=== PATIENT | male | born 2000 | race Two or more races ===

== ENCOUNTER 2025-05-18 21:24 | Emergency (ER) | payer OTHER, SELFPAY ==
[2025-05-18 21:28] VITALS: BMI 38.3
[2025-05-18 21:37] VITALS: BP 159/93; PULSE 91; RESP 17; TEMP 37.1; O2SAT 96
--- NOTE | 2025-05-18 21:42 | XR_ITS ---
Examination: CT lumbar spine, without contrast. 2-D sagittal reconstructions. 2-D coronal reconstructions. 3-D reconstructions. Date and time of exam May 18, 2025, 10:28 PM CTDI: vol (mGy):35.6 DLP: (mGycm):1491 Technique: Multiple 1.25 mm axial sections of the lumbar spine have been obtained. 2-D sagittal and coronal reconstructions have been obtained. 3-D reconstructions have been obtained. Low dose protocols were performed. One or more of the following dose reduction techniques were used; automated exposure control, adjustment of the mA and/or KV according to patient size, use of iterative reconstruction technique. Findings: Adequate alignment lumbar vertebral bodies Moderate disc narrowing L5-S1 No lumbar fracture No spondylolisthesis L5-S1 9 mm central left paracentral disc bulge extending to the left foramen with severe left L5 ganglionic impression L4-L5: 8 mm central lumbar disc bulge severely impinging upon the thecal sac L3-L4 6 mm central lumbar disc bulge L2-L3 no disc protrusion L1-L2 no disc protrusion IMPRESSION: Severe acquired spinal stenosis at the L5-S1 L4-L5 levels Recommend MRI lumbar spine without contrast follow-up
--- NOTE | 2025-05-18 21:42 | PD.EDRME ---
Rapid Medical Screening Exam RME Arrival date/time: 05/18/25 21:24 This is a case of 24-year-old male with no medical history came in in the emergency room due to lower back pain radiating to sacral area for 1 week worsening of the symptoms now with numbness weakness on both lower extremities thus patient decided to sought consult here in the emergency room Chief Complaint: General Adult/Misc Complain Time Seen by Provider: 05/18/25 21:33 Vital signs: Vital Signs Temperature 98.7 F 05/18/25 21:37 Pulse Rate 91 05/18/25 21:37 Respiratory Rate 17 05/18/25 21:37 Blood Pressure 159/93 H 05/18/25 21:37 Pulse Oximetry (%) 96 05/18/25 21:37 Oxygen Delivery Method Room Air 05/18/25 21:37
[2025-05-18 22:18] LABS: Basophils # (Auto) 0.0 Thou/mm3 (0.0-0.2); Basophils % (Auto) 0 % (0-2.5); Eosinophils # (Auto) 0.0 Thou/mm3 (0.0-0.5); Eosinophils % (Auto) 0 % (0-10); Hematocrit 39.7 % (41.0-53.0); Hemoglobin 12.6 g/dL (13.5-16.0); Immature Granulocytes Auto 0.05 Thou/mm3 (0.00-0.00); Lymphocytes # (Auto) 1.8 Thou/mm3 (1.0-4.8); Lymphocytes % (Auto) 17 % (10-50); Mean Corpuscular HGB Conc 31.7 g/dl (31.0-37.0); Mean Corpuscular Hemoglobin 27.7 pg (25.0-35.0); Mean Corpuscular Volume 87 fL (80-100); Monocytes # (Auto) 0.7 Thou/mm3 (0.0-0.8); Monocytes % (Auto) 6 % (0-12); Neutrophils # (Auto) 8.3 Thou/mm3 (1.8-7.7); Neutrophils % (Auto) 76 % (37-80); Nucleated Red Blood Cell # 0.00 Thou/mm3 (0.00-0.00); Nucleated Red Blood Cell % 0 /100 WBC (0); Platelet Count 203 Thou/mm3 (140-440); RDW Standard Deviation 47.2 fL (35.1-43.9); Red Blood Count 4.55 Miln/mm3 (4.50-5.90); White Blood Count 10.9 Thou/mm3 (3.8-10.6)
[2025-05-18 22:38] LABS: Alanine Aminotransferase 16 U/L (10-49); Albumin, Serum 4.9 gm/dL (3.5-5.0); Albumin/Globulin Ratio 1.8 (1.2-2.2); Alkaline Phosphatase 84 U/L (46-116); Anion Gap 9 (7-16); Aspartate Amino Transferase 19 U/L (0-34); BUN/Creatinine Ratio 11 Ratio (12-20); Bilirubin,Total 0.5 mg/dL (0.3-1.2); Blood Urea Nitrogen 9 mg/dL (9-23); Calcium 9.9 mg/dL (8.3-10.6); Calcium (Corrected) 9.9 mg/dL (8.5-10.1); Carbon Dioxide 26.9 mMol/L (20.0-31.0); Chloride 105 mMol/L (98-107); Creatinine (Component) 0.8 mg/dL (0.6-1.3); Estimated Creatinine Clearance 193.1 mL/min (>60); Globulin 2.8 gm/dL (2.3-3.5); Glucose 117 mg/dL (74-106); Osmolality,Calculated 280 (275-295); Potassium 3.8 mMol/L (3.4-5.1); Sodium 141 mMol/L (136-145); Total Protein 7.7 gm/dL (5.7-8.2); eGFR > 60 See Note
[2025-05-18 23:17] VITALS: BP 163/94; PULSE 86; RESP 19; TEMP 37.6; O2SAT 98
--- NOTE | 2025-05-19 01:05 | PD.EDNEURO ---
Neuro Symptoms Deficit-RME/HPI General Chief Complaint: General Adult/Misc Complain Stated Complaint: BILATERAL LEG NUMBNESS TODAY Time Seen by Provider: 05/18/25 21:33 Arrival date/time: 05/18/25 21:24 RME / HPI RME / HPI Narrative: 05/18/25 21:24 This is a case of 24-year-old male with no medical history came in in the emergency room due to lower back pain radiating to sacral area for 1 week worsening of the symptoms now with numbness weakness on both lower extremities thus patient decided to sought consult here in the emergency room DR. FORBES MAIN ED EVALUATION: 24 y/o male with no significant medical history presents to ED c/o BL lower back pain x 1 year and BL weakness and numbness radiating from the BL glutes and posteriorly down to his feet x 1 day. He is unable to stand and support his own weight. Patient was able to ambulate and stand with no evident deficits 2 days ago. Last bowel movement was Tuesday morning and last urinary output was Tuesday morning. Patient was seen at [place] [facility] just [employer] and was discharge with Hypothyroidism. No CT or MRI was performed only bloodwork. No other concerns or complains expressed at this time. Related Data Allergies Allergy/AdvReac Type Severity Reaction Status Date / Time No Known Allergies Allergy Verified 05/18/25 21:27 Review of Systems Review of Systems Systems Reviewed: All systems reviewed, normal except as documented Past Medical History Past Medical History ENDOCRINE: Positive Endocrine Disorders and Hypothyroidism ED Exam Narrative Physical exam: Generally patient is alert and in no obvious distress heart is regular rate and rhythm lungs clear to auscultation equal bilaterally abdomen soft bowel sounds present nondistended nontender and obese neurologic exam showed the patient have symmetric bilateral lower extremity weakness with the muscle strength of 4/5. He does have saddle anesthesia. He does have low back tenderness to palpation. Patient's bilateral lower extremity weakness can support the patient's own weight for only a brief period of time. Course Quality Measures none Orders Category Date Time Status CT lumbar spine wo con Stat Exams 05/18/25 21:42 Completed CBC Stat Lab 05/18/25 22:10 Completed CMP [Comprehensive Metabolic Panel] Stat Lab 05/18/25 22:10 Completed HYDROmorphone INJ [Dilaudid Inj] Med 05/19/25 01:06 Discontinued 1 mg IVP X1 ONE Vital Signs Vital signs: Vital Signs Temperature 98.7 F 05/18/25 21:37 Pulse Rate 91 05/18/25 21:37 Respiratory Rate 17 05/18/25 21:37 Blood Pressure 159/93 H 05/18/25 21:37 Pulse Oximetry (%) 96 05/18/25 21:37 Oxygen Delivery Method Room Air 05/18/25 21:37 Neuro Symptoms / Deficit MDM Narrative MDM Narrative:: Scribe Attestation: I, Navya Quinones, am scribing for and in the presence of Dr. Forbes. Provider Notation: Although this document has been carefully reviewed, there may still be some phonetic and other typographical errors.? These errors are purely grammatical due to imperfections in the software program and should not be construed in any way to? compromise the substance of the patient's medical care during this visit. Clinically this patient has cauda equina syndrome which is a surgical emergency. He has saddle anesthesia and a bladder scan showed the patient to be retaining almost 900 cc of urine. He also has low back pain. He apparently was seen at an outside facility earlier today and discharged home even though he could not support his own weight. MRI at our facility is nonfunctional at this time. I also have no neurosurgeon. This patient needs to be transferred to a facility who can obtain an MRI of the patient's lumbosacral spine and if in fact cauda equina syndrome is confirmed patient needs neurosurgical consultation. While waiting for transfer the patient did undergo a CT scan of the lumbar sacral spine which showed severe spinal stenosis at L4-L5 and L5-S1. I did interpret all labs. Patient data External records reviewed:: [facility] previous records (No prior ED records available for review.) Clinical information provided by:: patient Social determinants that could affect healthcare access:: none Patient has the following chronic illnesses:: Hypothyroidism How is presenting disease/condition affected by chronic disease/condition?: exacerbated by Evaluation data The following diagnostics were reviewed and interpreted by me:: lab results and radiology exam(s) Lab and/or radiology exams considered but not ordered:: None Interpretation Summary: RADIOLOGY L-Spine CT: Findings: Adequate alignment lumbar vertebral bodies Moderate disc narrowing L5-S1 No lumbar fracture No spondylolisthesis L5-S1 9 mm central left paracentral disc bulge extending to the left foramen with severe left L5 ganglionic impression L4-L5: 8 mm central lumbar disc bulge severely impinging upon the thecal sac L3-L4 6 mm central lumbar disc bulge L2-L3 no disc protrusion L1-L2 no disc protrusion IMPRESSION: Severe acquired spinal stenosis at the L5-S1 L4-L5 levels Recommend MRI lumbar spine without contrast follow-up Medications / Prescriptions Medications or Prescriptions considered but not ordered:: None Medication administrations:: Medication Administration History Discontinued Medications Hydromorphone HCl (Hydromorphone Inj 2 Mg/Ml Vial) 1 mg IVP X1 ONE Stop: 05/19/25 01:07 See above Consultations Consultation(s) initiated? (list below): No Diagnosis Neuro Differential Diagnosis: delirium, peripheral neuropathy, multiple sclerosis and other (Spinal stenosis, Discitis, Degerantive disc disease) Most likely diagnosis given after review of the tests above:: None Admission Indicated Admission indicated?: not indicated Explain why admission is indicated or not indicated:: Patient requires transfer for MRI. Admission Request Was there a request for admission?: No Disposition Plan Disposition Plan: Transfer Critical Care Time Critical Care Time Critical Care Time: Yes Total Critical Care Time (min.): 35 Attestation: Excluding other billable procedures Discharge Plan Plan Patient Disposition: [facility] Acute Care Fac Prescriptions/Referrals Referrals: No Primary/Family,Physician [Primary Care Provider] - In 1 week Problem List Clinical Impression: Cauda equina syndrome Patient/Caregiver Discharge Instructions Print Language: [place] Zealander Stand Alone Forms: Mary Award Info., Patient Portal Info Letter
[2025-05-19] MEDS: HYDROmorphone INJ 2 MG/ML VIAL 1 MG IVP ×2 (01:30→03:36)
[2025-05-19 01:39] VITALS: BP 153/100; PULSE 85; RESP 20; TEMP 36.9; O2SAT 97
--- NOTE | 2025-05-19 01:58 | PC.NURSE ---
[facility] contacted for possible transfer. Pt packet faxed over. Spoke to [facility]- stated they would reach back after presenting case.
--- NOTE | 2025-05-19 02:42 | PD.EDADDENDU ---
Emergency Room Addendum Addendum Narrative: I spoke with the transfer center at [facility]. They put me in contact with the ER physician, Dr. Cheung who is graciously accepted this patient in transfer. The transfer center also spoke with their neurosurgeon, Dr. Clinton who has agreed to see the patient. Patient was notified of this transfer and is agreeable to this transfer. Patient will be transferred in stable condition to obtain an MRI at [facility] to assess for cauda equina syndrome.
[2025-05-19 02:55] VITALS: BP 149/98; PULSE 75; RESP 17; TEMP 37.6; O2SAT 96
--- NOTE | 2025-05-19 03:18 | PC.NURSE ---
Report given to Shaina at [facility]. All questions addressed and answered. EMS here to case picker patient for tranfer.
[2025-05-19 03:41] VITALS: BP 155/105; PULSE 76; RESP 19; TEMP 36.6; O2SAT 98
== END 2025-05-19 03:40 | disposition short-term general hospital (02) ==
PROVIDERS: Nurse Practitioner Family; Emergency Provider Emergency Medicine
DX: G83.4 Cauda equina syndrome (principal); M48.061 Spinal stenosis, lumbar region without neurogenic claudication; M48.07 Spinal stenosis, lumbosacral region
CPT/HCPCS: 51702; 36415; 72131; 80053; 85025; 96374; 96376; 99283; A4314; J1171